=== PATIENT | female | born 1995 | race Caucasian/White ===

== ENCOUNTER → 2018-12-20 11:45 | Outpatient (CLI) | payer BC ==
--- NOTE | 2018-12-21 11:19 | ST ---
PATIENT:BHARATH MARKHAM MEDICAL RECORD: [id number] SEX: F LOCATION:[facility] ORDER #: ADMISSION DATE: 12/20/18 AGE OF PATIENT: 23 REFERRING PHYSICIAN: INTERPRETING PHYSICIAN: TOBI LEIGH MD DATE OF SERVICE: 12/20/2018 PROCEDURE: Nuclear Stress Test. INDICATIONS: Chest pain, abnormal ECG, and shortness of breath. She was exercised on standard Charles protocol for 6 minutes 20 seconds achieving greater than 85% of max target heart rate response with 33 mCi of sestamibi injected at peak stress, 11 mCi used previously for rest images. FINDINGS: Gated SPECT reveals preserved ejection fraction at 64% with good wall motion and thickening and brightening throughout all segments. SPECT imaging Cardiolite was used as myocardial fusion agent. There is homogeneous uptake throughout all segments at rest and stress with no evidence of inducible ischemia or previous infarction. OVERALL IMPRESSION: 1. This is a normal nuclear stress test with no evidence of inducible ischemia or previous infarction. 2. Gated SPECT reveals a preserved ejection fraction at 64%. In this patient with ongoing symptomatology, the current scan does not suggest the presence of hemodynamically significant coronary artery disease. Evaluate noncardiac etiology of chest pain. TRANSINT:[id number] Voice Confirmation ID: [id number] DOCUMENT ID: [id number] TOBI LEIGH MD at 1119 CC: [id number] DICTATION DATE: 12/20/18 1608 PATTERN MARKER: 12/21/18 0120 DEP CLI 12/20/18 [place] [id number] [place] [id number]
== END | disposition home or self-care (01) ==
LOC: D.HCCARDIO 11-29 12:30
DX: Z03.89 Encounter for observation for other suspected diseases and conditions ruled out (principal)